=== PATIENT | female | born 1995 | race American Indian/Alaskan Native ===

== ENCOUNTER 2017-10-06 01:30 | Emergency (ER) | payer OTHER ==
--- NOTE | 2017-10-06 02:14 | Emergency Department Report ---
ED Dizziness HPI - General Stated Complaint: ELEVATED BLOOD SUGAR Time Seen by Provider: 10/06/17 01:54 Source: patient, EMS Mode of arrival: Stretcher Limitations: No Limitations - History of Present Illness Initial Comments: 22 yo female with a history of diabetes mellitus type 1 comes in due to a blood glucose of greater than 500. She states that her diabetes is normally controlled, however she has a new insulin pump and has not received instructions on how to use it. Also admits to polyuria, polydipsia, and weakness. MD Complaint: dizziness, other (hyperglycemia) -: days(s) (three ) History of Same: No History of Trauma: No Severity: moderate Improves With: nothing Worsens With: movement, exertion Associated Symptoms: malaise, weakness - Related Data Previous Rx's Medication Instructions Recorded Last Taken Type Ondansetron [Zofran Odt] 4 mg PO Q6HR PRN #20 tab.rapdis 10/06/17 Unknown Rx Allergies Allergy/AdvReac Type Severity Reaction Status Date / Time dexamethasone [From Decadron] Allergy Unknown Verified 10/06/17 02:23 prednisone Allergy Unknown Verified 10/06/17 02:23 ED Review of Systems ROS: Stated complaint: ELEVATED BLOOD SUGAR Other details as noted in HPI Constitutional: malaise, weakness Eyes: denies: eye pain, eye discharge, vision change ENT: other (dry mucous membranes ) Respiratory: denies: cough, shortness of breath, wheezing Cardiovascular: denies: chest pain, palpitations Endocrine: increased thirst, increased urine Gastrointestinal: denies: abdominal pain, nausea, diarrhea Genitourinary: denies: urgency, dysuria, discharge Musculoskeletal: denies: back pain, joint swelling, arthralgia Skin: denies: rash, lesions Neurological: denies: headache, weakness, paresthesias Psychiatric: denies: anxiety, depression Hematological/Lymphatic: denies: easy bleeding, easy bruising ED Past Medical Hx - Past Medical History Previous Medical History?: Yes Hx Diabetes: Yes Hx Asthma: Yes - Surgical History Past Surgical History?: Yes Additional Surgical History: ablation - Social History Smoking Status: Never Smoker Substance Use Type: None - Medications Home Medications: Home Medications Medication Instructions Recorded Confirmed Last Taken Type Ondansetron [Zofran Odt] 4 mg PO Q6HR PRN #20 tab.rapdis 10/06/17 Unknown Rx ED Physical Exam - General Limitations: No Limitations General appearance: alert, in no apparent distress - Head Head exam: Present: atraumatic, normocephalic - Eye Eye exam: Present: normal appearance - ENT ENT exam: Present: mucous membranes dry - Neck Neck exam: Present: normal inspection - Respiratory Respiratory exam: Present: normal lung sounds bilaterally. Absent: respiratory distress - Cardiovascular Cardiovascular Exam: Present: regular rate, normal rhythm. Absent: systolic murmur, diastolic murmur, rubs, gallop - GI/Abdominal GI/Abdominal exam: Present: soft, normal bowel sounds - Extremities Exam Extremities exam: Present: normal inspection - Back Exam Back exam: Present: normal inspection - Neurological Exam Neurological exam: Present: alert, oriented X3 - Psychiatric Psychiatric exam: Present: normal affect, normal mood - Skin Skin exam: Present: warm, dry, intact, normal color. Absent: rash ED Course Vital Signs 10/06/17 01:46 Temperature 98.9 F Pulse Rate 87 Blood Pressure 104/71 O2 Sat by Pulse 100 Oximetry - Reevaluation(s) Reevaluation #1: 10/06/17 04:11 Blood glucose down to 226. Plan to give another liter of ivf's. Home after second bag of ivf's. ED Medical Decision Making - Lab Data Result diagrams: 10/06/17 02:40 10/06/17 02:40 - Medical Decision Making Hyperglycemia Dehydration History of diabetes mellitus type 1 - Differential Diagnosis hyperglycemia, dehydration, type 1 diabetes mellitus Critical care attestation.: If time is entered above; I have spent that time in minutes in the direct care of this critically ill patient, excluding procedure time. ED Disposition Clinical Impression: Hyperglycemia due to type 1 diabetes mellitus, Dehydration Clinical Impression: (Ruled Out): Hyperglycemia due to type 2 diabetes mellitus Disposition: DC-01 TO HOME OR SELFCARE Is pt being admited?: No Does the pt Need Aspirin: No Condition: Stable Instructions: Diabetes Mellitus Type 2 in Adults (ED) Additional Instructions: Remember to drink plenty of fluids even after feeling better. Please speak with you life educator in regards to restarting your insulin pump. Prescriptions: Ondansetron [Zofran Odt] 4 mg PO Q6HR PRN #20 tab.rapdis PRN Reason: Nausea And Vomiting Referrals: PRIMARY CARE,MD [Primary Care Provider] - 3-5 Days Time of Disposition: 04:17
[2017-10-06] MEDS ORDERED: NACL 0.9% 1000 ML 1,000 ML IV SCH (03:00)
[2017-10-06 03:03] LABS: Bilirubin,Urine NEG (Negative); Blood,Urine NEG (Negative); Ketones,Urine 20 mg/dL (Negative); Leukocyte Esterase,Urine NEG (Negative); Nitrite,Urine NEG (Negative); Protein,Urine <15 mg/dL mg/dL (Negative); Urobilinogen,Urine < 2.0 mg/dL (<2.0); WBC,Urine < 1.0 /HPF (0.0-6.0)
[2017-10-06 03:03] LABS: Urine Drugs of Abuse Note Disclamer
[2017-10-06 03:09] LABS: Hematocrit 38.6 % (30.3-42.9); Hemoglobin 12.8 gm/dl (10.1-14.3); Mean Corpuscular HGB Conc 33 % (30-34); Mean Corpuscular Hemoglobin 32 pg (28-32); Mean Corpuscular Volume 96 fl (79-97); Platelet Count 214 K/mm3 (140-440); Red Blood Count 4.04 M/mm3 (3.65-5.03); White Blood Count 6.7 K/mm3 (4.5-11.0)
[2017-10-06 03:24] LABS: Alanine Aminotransferase 6 units/L (7-56); Albumin 4.2 g/dL (3.9-5); Albumin/Globulin Ratio 1.4 %; Alkaline Phosphatase 100 units/L (35-129); Anion Gap 20 mmol/L; BUN/Creatinine Ratio 22; Blood Urea Nitrogen 11 mg/dL (7-17); Calcium 9.3 mg/dL (8.4-10.2); Carbon Dioxide 24 mmol/L (22-30); Chloride 95.7 mmol/L (98-107); Creatine Kinase 34 units/L (30-135); Glucose 464 mg/dL (65-100); Potassium 4.1 mmol/L (3.6-5.0); Sodium 136 mmol/L (137-145); Total Protein 7.1 g/dL (6.3-8.2)
[2017-10-06 04:02] LABS: Blastocytes % (Manual) 0 %; RBC Morphology Normal
[2017-10-06 04:03] LABS: Diff Status Complete; Platelet Estimate Consistent w Auto
[2017-10-06 06:27] VITALS: BP 112/70
== END 2017-10-06 06:51 | disposition home or self-care (01) ==
LOC: ED 01:30
DX: E10.65 Type 1 diabetes mellitus with hyperglycemia (principal); E86.0 Dehydration; Z88.8 Allergy status to other drugs, medicaments and biological substances
CPT/HCPCS: 36415; 80053; 80307; 81001; 81025; 82550; 82553; 82962; 83735; 84100; 84484; 85007; 85025; 96361; 96374; 96376; 99284; J1815